=== PATIENT | female | born 1990 | race Caucasian/White ===

== ENCOUNTER 2016-09-05 12:21 | Inpatient (IN) | payer OTHER ==
[~2016-09-05] VITALS: Ht 172.7 cm; Wt 117.0 kg
[2016-09-05 13:48] VITALS: Ht 172.7 cm; Wt 117.0 kg
[2016-09-05 13:49] VITALS: BP 150/94; PULSE 67; RESP 18
[2016-09-05 14:14] LABS: ADD UMIC YES; UR ASCORBIC ACID NEGATIVE (NEGATIVE); UR BACTERIA MODERATE /HPF (NONE SEEN); UR BILIRUBIN (Dip) NEGATIVE (NEGATIVE); UR BLOOD (Dip) NEGATIVE (NEGATIVE); UR CLARITY SLIGHTLY CLOUDY (CLEAR); UR COLOR YELLOW (YELLOW); UR GLUCOSE (Dip) NEGATIVE (NEGATIVE); UR KETONES (Dip) NEGATIVE (NEGATIVE); UR LEUKOCYTE ESTERASE (Dip) TRACE Leu/ul (NEGATIVE); UR NITRITE (Dip) NEGATIVE (NEGATIVE); UR RBC 1 /HPF (0-5); UR SQUAMOUS EPITHELIAL CELL FEW /HPF (FEW); UR TOTAL PROTEIN (Dip) 2+ mg/dl (NEGATIVE); UR UROBILINOGEN (Dip) NEGATIVE (NEGATIVE)
--- NOTE | 2016-09-05 14:30 | RADRPT ---
PROCEDURE: OB ultrasound for biophysical profile CLINICAL INDICATION: Hypertension TECHNIQUE: Multiple sonographic images of the pelvis were obtained. Transabdominal views of the g ravid uterus are available for review. The images were reviewed on a PACS workstation. COMPARISON: None FINDINGS: breathing movement = 2/2 tone = 2/2 motion = 2/2 ROSEANNE = 2/2 ROSEANNE = 8.9 cm Single live intrauterine with cardiac activity of 146 bpm. position is cephal ic. The placenta is fundal. IMPRESSION: 1. Single live intrauterine gestation. 2. Biophysical profile = 8/8. 3. ROSEANNE = 8.9 cm. RPTAT: HH .Ailyn Christianson MD, MD Date Time Electronically viewed and signed by .Ailyn Christianson MD, on 09/05/2016 14:30 .G/
--- NOTE | 2016-09-05 14:32 | RADRPT ---
PROCEDURE: US OB. CLINICAL INDICATION: Size and dates TECHNIQUE: Multiple sonographic images of the pelvis were obtained. Transabdominal imaging only w as performed. The images were reviewed on a PACS workstation. COMPARISON: No prior studies are available for comparison. FINDINGS: There is a single live intrauterine gestation. Cardiac activity is present with 148 beats per minut e. position is cephalic. Measurements were made in order to determine age. The results are as follows: BPD = 8.33 cm HC = 29.20 cm AC = 30.99 cm FL = 6.77 cm. Estimated gestational age of approximately 33 weeks 6 days. The estimated date of delivery is 10/18/2016. The EFW = 2433 g, 8.8 %ile. The placenta is fundal. There is no evidence for an abruption or placenta previa. There are no adnexal masses. IMPRESSION: 1. Single live intrauterine gestation of approximately 33 weeks 6 days, by ultrasound criteria. 2. The estimated date of delivery is 10/18/2016. 3. The estimated weight is 2433 g, 8.8 %ile. RPTAT: HH .Ailyn Christianson MD, Date Time Electronically viewed and signed by .Ailyn Christianson MD, on 09/05/2016 14:32 .G/
[2016-09-05 14:51] LABS: ADD SCAN DIFF NO
[2016-09-05] MEDS ORDERED: MAGNESIUM SULFATE 4 GM/100 ML 100 ML IV ONE (15:00)
[2016-09-05] MEDS ORDERED: ONDANSETRON 4 MG INJ IV PRN (15:00)
--- NOTE | 2016-09-05 15:07 | HP ---
Date/Time of Note Date/Time of Note DATE: 09/05/16 TIME: 15:05 OB - History Hx of Present Free Text/Dictation pt sent from clinic for evaluatio of HTN and proteinuria : 1 Para: 0 Care: Good Care Ultrasounds: No ultrasounds, Normal mid trimester US Obstetrical Complications: Pre-eclampsia Past Family/Social History * Past Medical, Surgical, Family and Obstetric Histories reviewed from chart. OB Admission Exam Vital Signs Vital Signs Vital Signs Date Time Temp Pulse Resp B/P Pulse Ox O2 Delivery O2 Flow Rate FiO2 09/05/16 13:49 98.1 67 18 150/94 Room Air Physical Exam HEENT: WNL Heart: Rhythm Normal Abdomen: WNL Extremities: Normal Reflexes: Normal OB Assessment/Plan Other plan: iup 36 +\BP 160/100 +3 protein admit PIH labs, mgsou4 mangagment per pts OB LETTY OBREGON MD Sep 05, 2016 15:07
[2016-09-05] MEDS: LACTATED RINGER'S 1,000 ML IV SCH (15:14)
[2016-09-05 15:33] LABS: ALBUMIN 3.2 g/dl (3.3-4.9); ALBUMIN/GLOBULIN RATIO 0.91; CALCIUM 9.1 mg/dl (8.4-10.2); CREATININE 0.79 mg/dl (0.44-1.00); POTASSIUM 4.6 mmol/L (3.5-5.1); TOTAL PROTEIN 6.7 g/dl (6.1-8.1); URIC ACID 6.3 mg/dl (3.1-7.9)
[2016-09-05 15:39] LABS: BASOPHILS % 0.4 % (0.0-2.0); EOSINOPHILS % 0.1 % (0.0-7.0); HEMATOCRIT 38.6 % (37.0-47.0); HEMOGLOBIN 12.6 g/dl (12.0-16.0); LYMPHOCYTES # 2.5 10^3/ul (0.8-2.9); LYMPHOCYTES % 24.9 % (15.0-51.0); MEAN CORPUSCULAR HEMOGLOBIN 28.6 pg (29.0-33.0); MEAN CORPUSCULAR HGB CONC 32.6 g/dl (32.0-37.0); MEAN CORPUSCULAR VOLUME 87.7 fl (82.0-101.0); MEAN PLATELET VOLUME 12.8 fl (7.4-10.4); MONOCYTE # 0.5 10^3/ul (0.3-0.9); MONOCYTES % 4.8 % (0.0-11.0); NEUTROPHILS % 69.2 % (39.0-77.0); PLATELET COUNT 207 10^3/UL (140-415); RED CELL DISTRIBUTION WIDTH 15.6 % (11.5-14.5); WHITE BLOOD COUNT 10.1 10^3/ul (4.8-10.8)
[2016-09-05 15:47] LABS: INR 0.93; PARTIAL THROMBOPLASTIN TIME 28.6 Sec (25.0-35.0); PROTIME 12.5 Sec (12.2-14.2)
[2016-09-05] MEDS: MAGNESIUM SULFATE 20 GM/500 ML 500 ML IV SCH (15:53)
[2016-09-05] MEDS ORDERED: BETAMET NA PHOS/AC(6 MG/ML) 5ML INJ IM ONE (20:00)
[2016-09-05] MEDS: ACETAMINOPHEN 325 MG TAB PO PRN (20:02)
[2016-09-06] MEDS: LACTATED RINGER'S 1,000 ML IV SCH (00:34)
[2016-09-06] MEDS ORDERED: LABETALOL HCL 20MG INJ IV PRN ×2 (01:00→17:30)
[2016-09-06] MEDS: MAGNESIUM SULFATE 20 GM/500 ML 500 ML IV SCH ×3 (03:16→19:22)
--- NOTE | 2016-09-06 05:43 | PN ---
Date/Time of Note Date/Time of Note DATE: 09/06/16 TIME: 05:29 OB Subjective Subjective Subjective Late Entry Note: She was seen on 09/05/16 26 Year-old with SIUP at 36 4/7 weeks. She is c/o headache (3/10). She states good movement. She denies nausea, vomiting, shortness of breath, chest pain, visual changes, vaginal bleeding or LOF. OB Objective Objective Objective General: Patient appears well, alert and oriented, NAD, appropriate mood and affect ABD: gravid, soft, non-tender. Back: No CVA tenderness (B/L) LE: No clubbing, cyanosis, edema, thigh or calf tenderness bilaterally FHT: 135 bpm , moderate variability with acceleration, no deceleration-category I Contractions: None OB Assessment/Plan Other plan: 26 Year-old with SIUP at 36 4/7 weeks with preeclampsia. FHR: No sign of metabolic acidosis- Category I. Continuous EFM, toco. She is currently on mag sulfate. She was c/o headache which resolved with tylenol. BMZ x2 ordered. Observe her closely, delivery with s/sx of severe features. I have discussed pt over the phone with Dr. Saini who has agreed with plan. She recommend delivery with symptoms and sign of preeclampsia with severe features. STEFANIE ESTRELLA Sep 06, 2016 05:41
[2016-09-06] MEDS ORDERED: EPHEDrine SULFATE 50 MG/5 ML SYG ONE (07:00)
[2016-09-06] MEDS: ACETAMINOPHEN 325 MG TAB PO PRN (09:08)
[2016-09-06] MEDS ORDERED: DEXTROSE 5%-LR 1,000 ML IV SCH (09:30)
[2016-09-06] MEDS ORDERED: DINOPROSTONE 10 MG VAG SUPP VAG ONE (11:30)
[2016-09-06] MEDS ORDERED: CEFAZOLIN 2 GM/50 ML (PMX) 50 ML IVPB ONE (13:30)
[2016-09-06] MEDS ORDERED: ONDANSETRON 4 MG INJ IV STA (14:51)
[2016-09-06] MEDS ORDERED: CITRIC ACID/NA CITRATE 30 ML CUP PO ONE ×2 (15:00)
[2016-09-06] MEDS ORDERED: OXYTOCIN 10 UNIT INJ ONE (16:38)
[2016-09-06] MEDS ORDERED: FENTAnyl 50 MCG/ML VIAL ONE (16:38)
[2016-09-06] MEDS ORDERED: morphine SULFATE/PF (10 MG/10 ML) INJ ONE (16:38)
[2016-09-06] MEDS ORDERED: METOCLOPRAMIDE 10 MG INJ ONE (16:38)
[2016-09-06] MEDS ORDERED: PHENYLephrine (100 MCG/ML) 5ML SYG ONE (16:38)
[2016-09-06] MEDS ORDERED: DIPHENHYDRAMINE 50 MG INJ IV PRN ×2 (17:30)
[2016-09-06] MEDS ORDERED: FENTAnyl 50 MCG/ML VIAL IV PRN ×3 (17:30)
[2016-09-06] MEDS ORDERED: KETOROLAC 30 MG INJ IV PRN (17:30)
[2016-09-06] MEDS ORDERED: EPHEDrine SULFATE 50 MG/5 ML SYG IV PRN (17:30)
[2016-09-06] MEDS ORDERED: morphine 2 MG INJ IV PRN ×2 (17:30)
[2016-09-06] MEDS ORDERED: NALOXONE (0.4 MG/ML) INJ IV PRN (17:30)
[2016-09-06] MEDS ORDERED: MIDAZOLAM 1 MG/ML 2 ML INJ IV PRN (17:30)
[2016-09-06] MEDS ORDERED: hydrALAzine 20 MG INJ IV PRN (17:30)
[2016-09-06] MEDS ORDERED: HYDROmorphONE (0.2 MG/ML) 10ML SYG IV PRN ×3 (17:30)
[2016-09-06] MEDS ORDERED: TRIMETHOBENZAMIDE 100 MG/ML VIAL IM PRN (17:30)
[2016-09-06] MEDS ORDERED: OXYCODONE/ACETAMINOPHEN (5/325) TAB PO PRN ×4 (17:30→21:30)
[2016-09-06] MEDS ORDERED: MEPERIDINE 25 MG INJ IV PRN (17:30)
[2016-09-06] MEDS ORDERED: ONDANSETRON 4 MG INJ IV PRN ×2 (17:30)
--- NOTE | 2016-09-06 18:02 | OPR ---
Operative Report Planned Procedure Free Text/Dictation 26 years old complicated with moderate to severe PIH on magnesium sulfate delivery recommended by the perinatologist, Cervidil induction stopped due to patient request for no further trial of induction requesting delivery, complication of this surgery including but not limited to bowel and bladder injury wound infection and hematoma discussed with her understanding all these facts she would like to proceed with the operation Procedure date Sep 06, 2016 Procedure(s) Primary Performed by: ERIKA CORDERO MD Assisting provider: GIL TOURE MD Anesthesiologist: Ash Kowalski M.D. Pre-procedure diagnosis 36 weeks and 5 days moderate to severe PIH decline further trial of induction. Anesthesia Type: spinal Procedure Description Under satisfactory [spine] anesthesia, the patient was prepped and draped and placed in a supine position, tilted to the left. Pfannenstiel incision was made , carried through the subcutaneous tissue. Bleeders brought under control with electrocautery. Fascia incised to the length of the incision. Rectus muscles from the fascia, divided midline. Peritoneum exposed, entered through a transverse incision. Exploration of abdomen revealed gravid uterus. Normal- appearing tubes and ovaries bladder flap was developed. Transverse incision was made in the lower segment of the uterus. Amniotic sac ruptured. Clear [] amniotic fluid noted. Light baby girl was delivered from occiput transferred with nuchal cord tight around the baby's neck Nasal oropharyngeal suction was performed. The baby was handed to the team for immediate attention. placenta was delivered manually intact. Uterine cavity was cleaned with wet sponge and drainage established. Uterus closed in 2 layers using Monocryl #1 [] in continuous fashion. Peritoneal cavity irrigated with warm saline. Sponge, needle and instrument count reported to be correct. Abdominal peritoneum closed with [] 0 chromic catgut continuously. Rectus muscle approximated with [several interrupted 2-0 chromic catgut]. Fascia closed with [#1 PDS], subcutaneous tissue approximated with several interrupted 2-0 chromic catgut skin closed with sd. Estimated blood loss 600 []mL. Urine bag contained [200]mL of clear urine patient tolerated procedure well transferred to recovery room in good condition Post-Procedure Findings: Live Baby [], Apgars [] and [], weight [], position [], [] presentation []cord. Specimen removed: Yes Specimen description Placenta sent to the pathology Complications: None (None) Pt Condition post procedure: stable Physician Certification I, the undersigned physician, hereby certify that I have discussed the procedure described in this consent form with this patient (or the patient's legal accounting representative), including: * The risk and benefits of the procedure; * Any adverse reactions that may reasonably be expected to occur; * Any alternative efficacious methods of treatment which may be medically viable ; * The potential problems that may occur during recuperation; * Potential for blood transfusion and associated risks/benefits; and * Any research or economic interest I may have regarding this treatment. I further certify that the patient/legally responsible person was encouraged to ask question and that all questions were answered. ERIKA CORDERO MD Sep 06, 2016 18:01
[2016-09-06] MEDS ORDERED: OXYTOCIN 30 UNITS/LR 500 ML IV ONE (18:14)
[2016-09-06] MEDS: OXYTOCIN 30 UNITS/LR 500 ML IV SCH ×3 (19:00→21:47)
[2016-09-06] MEDS ORDERED: BETAMET NA PHOS/AC(6 MG/ML) 5ML INJ IM ONE (20:00)
--- NOTE | 2016-09-06 20:20 | DELSUM ---
Delivery Summary A-C Datetime Report Generated by CPN: 09/06/2016 20:20 DELIVERY PERSONNEL Refresh Technician: Angela, Imani MATERNAL INFORMATION Delivery Anesthesia: Spinal Placenta Cultured: No Maternal Complications: Other Other Maternal Complications: PRE ECLAMPSIA, 2+ PROTEIN, URIC ACID 6.3 LABOR SUMMARY EDC: 09/29/2016 00:00 No. Babies in Womb: 1 Attempted: No Labor Anesthesia: None LABOR INFORMATION Reason for Induction: Gest. HTN/PreEclam/Eclamp Cervical Ripening Agents: Cervidil Oxytocin: Induction Group B Beta Strep: Negative Antibiotics # of Doses: 1 Antibiotics Time of Last Dose: 09/06/2016 16:39 Steroids Given: Partial Course Reason Steroids Not Administered: Other Other Reason Not Administered: MD STATED SECOND DOSE NOT NECESSARY. PT IS 36.5 WKS MEMBRANES Membranes Rupture Method: Artificial Rupture of Membranes: 09/06/2016 17:07 Length of Rupture (hr): 0.00 Amniotic Fluid Color: Clear Amniotic Fluid Amount: Moderate Amniotic Fluid Odor: None STAGES OF LABOR Stage 3 hr: 0 Stage 3 min: 0 CSECTION DELIVERY Primary Indication: Repeat Elective CSection Urgency: Elective CSection Incidence: Primary Labor: No Labor Elective: Elective CSection Incision: Lower Uterine Transverse BABY A INFORMATION Delivery Date/Time: 09/06/2016 17:07 Method of Delivery: Born in Route : No : N/A Forceps: N/A Vacuum Extraction: N/A Shoulder Dystocia : N/A SHOULDER DYSTOCIA BABY A Infant Delivery Date/Time: 09/06/2016 17:07 PRESENTATION/POSITION BABY A Presentation: Cephalic Cephalic Presentation: Vertex Vertex Position: Left Occipital Anterior Breech Presentation: N/A PLACENTA INFORMATION BABY A Placenta Delivery Time : 09/06/2016 17:07 Placenta Method of Delivery: Manual Removal Placenta Status: Delivered SCORES BABY A Heart Rate 1 min: >100 bpm Resp Effort 1 min: Good Cry Reflex Irritability 1 min: Cough/Sneeze/Pulls Away Muscle Tone 1 min: Active Motion Color 1 min: Body Energy, Extremit Blue Resuscitation Effort 1 min: Tactile Stimulation SCORE 1 MIN: 9 Heart Rate 5 min: >100 bpm Resp Effort 5 min: Good Cry Reflex Irritability 5 min: Cough/Sneeze/Pulls Away Muscle Tone 5 min: Active Motion Color 5 min: Body Energy, Extremit Blue Resuscitation Effort 5 min: Tactile Stimulation SCORE 5 MIN: 9 INFANT INFORMATION BABY A Gestational Age at Delivery: 36.5 Gestational Status: Late - 34- 36.6 Weeks Infant Outcome : Liveborn Condition : Fair Sex: Female IDENTIFICATION/MEDS BABY A ID Band Number: [id number] ID Band Location: Right Leg; Left Arm Sensor Applied: Yes Sensor Number: [id number] Sensor Location : Cord Clamp Vitamin K Given : Not Given Erythromycin Given: Not Given WEIGHT/LENGTH BABY A Infant Birthweight (gm): 2115 Infant Weight (lb): 4 Infant Weight (oz): 11 Length (in): 18.00 Length (cm): 45.72 CORD INFORMATION BABY A No. Cord Vessels: 3 Nuchal Cord : Around Neck x1, Tight Cord Blood Taken: Yes Suction: Mouth; Nose ASSESSMENT BABY A Complications: None Physical Findings at Delivery: Within Normal Limits Infant Respirations: Appears Normal Elderly Companion/ALS Called : No Care By: MARLENY JUAN Transferred To: Remains with Mother
[2016-09-06] MEDS ORDERED: OXYTOCIN 30 UNITS/LR 500 ML IV SCH (20:30)
[2016-09-06 21:00] VITALS: BP 175/100; PULSE 72; RESP 20
[2016-09-06 21:15] VITALS: BP 170/89; PULSE 68; RESP 19
[2016-09-06 21:30] VITALS: BP 159/91; PULSE 77; RESP 19
[2016-09-06] MEDS ORDERED: CEFAZOLIN 1 GM/50 ML (PMX) 50 ML IVPB SCH (21:30)
[2016-09-06] MEDS ORDERED: LANOLIN 7 GM TUBE TOP PRN (21:30)
[2016-09-06] MEDS ORDERED: ACETAMINOPHEN/CODEINE #3 TAB PO PRN ×2 (21:30)
[2016-09-06] MEDS ORDERED: MISOPROSTOL 200 MCG TAB PR PRN (21:30)
[2016-09-06] MEDS ORDERED: CARBOPROST 250 MCG INJ IM PRN (21:30)
[2016-09-06] MEDS ORDERED: METHYLERGONOVINE 0.2 MG INJ IM PRN (21:30)
[2016-09-06] MEDS ORDERED: OXYTOCIN 30 UNITS/LR 500 ML IV PRN (21:30)
[2016-09-06 22:00] VITALS: BP 161/83; PULSE 68; RESP 21
[2016-09-06 23:00] VITALS: BP 153/89; PULSE 74; RESP 18
[2016-09-07] VITALS (24 sets, daily range): BP systolic 125–155; BP diastolic 79–102; PULSE 59–78; RESP 16–21
[2016-09-07] MEDS: OXYTOCIN 30 UNITS/LR 500 ML IV SCH ×4 (01:02→17:28)
[2016-09-07] MEDS: MAGNESIUM SULFATE 20 GM/500 ML 500 ML IV SCH ×3 (01:06→16:27)
[2016-09-07 04:38] LABS: SCRET 0.76 mg/dl (0.44-1.00)
[2016-09-07 08:32] LABS: ADD SCAN DIFF NO
[2016-09-07 08:37] LABS: BASOPHILS % 0.2 % (0.0-2.0); HEMATOCRIT 35.4 % (37.0-47.0); HEMOGLOBIN 11.7 g/dl (12.0-16.0); LYMPHOCYTES # 2.4 10^3/ul (0.8-2.9); LYMPHOCYTES % 18.6 % (15.0-51.0); MEAN CORPUSCULAR HEMOGLOBIN 28.7 pg (29.0-33.0); MEAN CORPUSCULAR HGB CONC 33.1 g/dl (32.0-37.0); MEAN PLATELET VOLUME 11.5 fl (7.4-10.4); MONOCYTE # 0.6 10^3/ul (0.3-0.9); MONOCYTES % 4.5 % (0.0-11.0); NEUTROPHIL # 9.9 10^3/ul (1.6-7.5); NEUTROPHILS % 76.2 % (39.0-77.0); PLATELET COUNT 192 10^3/UL (140-415); RED BLOOD COUNT 4.07 10^6/ul (4.20-5.40); RED CELL DISTRIBUTION WIDTH 15.9 % (11.5-14.5)
[2016-09-07] MEDS: IBUPROFEN 600 MG TAB PO SCH ×3 (12:00→20:00)
--- NOTE | 2016-09-07 12:58 | QN ---
Documentation Comment Post day 1 Afebrile vital signs are stable blood pressures running within normal will discontinue magnesium sulfate at 5:00 lochia moderate not complaining of headache blurry vision or any other neurological symptoms ambulation encouraged ERIKA CORDERO MD Sep 07, 2016 12:57
[2016-09-07] MEDS: LACTATED RINGER'S 1,000 ML IV SCH (13:59)
[2016-09-07] MEDS: LABETALOL 100 MG TAB PO SCH (16:50)
[2016-09-07] MEDS: SENNA/DOCUSATE NA (8.6MG/50MG) TAB PO SCH (22:16)
[2016-09-08] VITALS (15 sets, daily range): BP systolic 130–166; BP diastolic 74–102; PULSE 55–76; RESP 18–20
[2016-09-08] MEDS: IBUPROFEN 600 MG TAB PO SCH ×4 (00:09→17:23)
[2016-09-08] MEDS: LACTATED RINGER'S 1,000 ML IV SCH ×2 (01:06→16:10)
[2016-09-08] MEDS: LABETALOL 100 MG TAB PO SCH ×2 (01:08→09:05)
[2016-09-08] MEDS: MAGNESIUM SULFATE 20 GM/500 ML 500 ML IV SCH (07:50)
[2016-09-08] MEDS: SENNA/DOCUSATE NA (8.6MG/50MG) TAB PO SCH ×2 (09:05→21:49)
--- NOTE | 2016-09-08 11:42 | PN ---
Date/Time of Note Date/Time of Note DATE: 09/08/16 TIME: 11:39 OB Subjective Subjective Subjective Post day 2 Doing fairly Well Afebrile Ambulatory Chest Clear Breasts are soft , Nipples are intact Abdomen is soft Fundus is firm Moderate amount of lochia Incision is clean ,No evidence of infection No calf tenderness No ankle edema She was on magnesium sulfate due to elevated blood pressure .will discharge this medication and place her on labetalol 100 mg twice daily Laboratory Tests Test 09/07/16 18:00 09/08/16 00:29 09/08/16 08:22 Magnesium Level 5.1mg/dl 4.7mg/dl 4.2mg/dl Current Medications Medications (Trade) Dose Ordered Sig/Shereen Route PRN Reason Start Time Stop Time Status Last Admin Dose Admin Lactated Ringer's 1,000 ml @ 125 mls/hr Q8H IV 09/05/16 14:48 09/06/16 21:31 DC 09/06/16 00:34 Magnesium Sulfate 100 ml @ 200 mls/hr ONCE ONCE IV 09/05/16 15:00 09/05/16 15:29 DC 09/05/16 15:24 Magnesium Sulfate (Magnesium Sulfate 20 Gm/500 ml) 500 ml @ 50 mls/hr Q10H IV 09/05/16 14:48 09/07/16 16:37 DC 09/07/16 13:17 Ondansetron HCl (Zofran Inj) 4 mg Q6H PRN IV NAUSEA AND/OR VOMITING 09/05/16 15:00 09/07/16 16:39 DC Betamethasone Acet/Betameth SodPhos (Celestone Soluspan) 12 mg ONCE ONCE IM 09/05/16 20:00 09/05/16 20:01 DC 09/05/16 20:02 Acetaminophen (Tylenol Tab) 650 mg Q6H PRN PO PAIN AND OR ELEVATED TEMP 09/05/16 20:00 09/06/16 21:31 DC 09/06/16 09:08 Betamethasone Acet/Betameth SodPhos (Celestone Soluspan) 12 mg ONCE ONCE IM 09/06/16 20:00 09/06/16 20:01 DC Labetalol HCl 20 mg 20 mg NOTE PRN IV ELEVATED BLOOD PRESSURE 09/06/16 01:00 09/06/16 21:31 DC Dextrose/Lactated Ringer's (D5-Lr) 1,000 ml @ 125 mls/hr Q8H IV 09/06/16 09:30 09/06/16 21:31 DC 09/06/16 11:27 Dinoprostone 10 mg 10 mg ONCE ONCE VAG 09/06/16 11:30 09/06/16 11:31 DC 09/06/16 11:51 Cefazolin Sodium/ Dextrose (Ancef 2 Gm/50 ml (Pmx)) 50 ml @ 100 mls/hr ONCE ONCE IVPB 09/06/16 13:30 09/06/16 13:59 DC Ondansetron HCl (Zofran Inj) 4 mg ONCE STAT IV 09/06/16 14:51 09/06/16 14:54 DC 09/06/16 19:20 Citric Acid/ Sodium Citrate (Bicitra) 15 ml ONCE ONCE PO 09/06/16 15:00 09/06/16 15:01 DC 09/06/16 19:20 Citric Acid/ Sodium Citrate (Bicitra) 15 ml ONCE ONCE PO 09/06/16 15:00 09/06/16 15:01 DC 09/06/16 19:20 Fentanyl (Sublimaze) 100 mcg STK-MED ONCE .ROUTE 09/06/16 16:38 09/06/16 16:39 DC Phenylephrine HCl (Jame-Synephrine Inj Syg) 500 mcg STK-MED ONCE .ROUTE 09/06/16 16:38 09/06/16 16:39 DC Metoclopramide HCl (Reglan) 10 mg STK-MED ONCE .ROUTE 09/06/16 16:38 09/06/16 16:39 DC Oxytocin (Oxytocin) 10 units STK-MED ONCE .ROUTE 09/06/16 16:38 09/06/16 16:39 DC Morphine Sulfate (Duramorph) 10 mg STK-MED ONCE .ROUTE 09/06/16 16:38 09/06/16 16:39 DC Hydromorphone HCl (Dilaudid (Rec)) 0.2 mg PACU ORDER PRN IV MILD PAIN LEVEL 1-3 09/06/16 17:30 09/06/16 21:31 DC Hydromorphone HCl (Dilaudid (Rec)) 0.4 mg PACU ORDER PRN IV MODERATE PAIN LEVEL 4-6 09/06/16 17:30 09/06/16 21:31 DC Hydromorphone HCl (Dilaudid (Rec)) 0.6 mg PACU ORDER PRN IV SEVERE PAIN LEVEL 7-10 09/06/16 17:30 09/06/16 21:31 DC Fentanyl (Sublimaze) 25 mcg PACU ORDER PRN IV MILD PAIN LEVEL 1-3 09/06/16 17:30 09/06/16 21:31 DC Fentanyl (Sublimaze) 50 mcg PACU ODER PRN IV MODERATE PAIN LEVEL 4-6 09/06/16 17:30 09/06/16 21:31 DC Fentanyl (Sublimaze) 75 mcg PACU ORDER PRN IV SEVERE PAIN LEVEL 7-10 09/06/16 17:30 09/06/16 21:31 DC Oxycodone/ Acetaminophen (Percocet (5/ 325)) 1 tab PACU ORDER PRN PO PAIN LEVEL 1-5 09/06/16 17:30 09/06/16 21:31 DC Oxycodone/ Acetaminophen (Percocet (5/ 325)) 2 tab PACU ORDER PRN PO PAIN LEVEL 6-10 09/06/16 17:30 09/06/16 21:31 DC Ondansetron HCl (Zofran Inj) 4 mg PACU ORDER PRN IV NAUSEA AND/OR VOMITING 09/06/16 17:30 09/06/16 21:32 DC Trimethobenzamide HCl (Tigan) 200 mg PACU ORDER PRN IM NAUSEA AND/OR VOMITING 09/06/16 17:30 09/06/16 21:32 DC Labetalol HCl (Labetalol) 5 mg PACU ORDER PRN IV HIGH BLOOD PRESSURE 09/06/16 17:30 09/06/16 21:32 DC Hydralazine HCl (Apresoline) 5 mg PACU ORDER PRN IV HIGH BLOOD PRESSURE 09/06/16 17:30 09/06/16 21:32 DC Ephedrine Sulfate 5 mg PACU ORDER PRN IV MAP LESS THAN 60 09/06/16 17:30 09/06/16 21:32 DC Meperidine HCl (Demerol) 25 mg PACU ORDER PRN IV POST-OP RIGORS 09/06/16 17:30 09/06/16 21:32 DC Diphenhydramine HCl (Benadryl) 25 mg PACU ORDER PRN IV PRURITUS 09/06/16 17:30 09/06/16 21:32 DC Midazolam HCl (Versed) 0.5 mg PACU ORDER PRN IV ANXIETY 09/06/16 17:30 09/06/16 21:32 DC Naloxone HCl (Narcan) 0.1 mg Q2M PRN IV FOR RESP RATE 8 OR LESS 09/06/16 17:30 09/07/16 16:39 DC Ketorolac Tromethamine (Toradol) 30 mg Q6H PRN IV PAIN 09/06/16 17:30 09/07/16 16:39 DC Morphine Sulfate (morphine) 2 mg Q3H PRN IV PAIN LEVEL 1-5 09/06/16 17:30 09/07/16 16:39 DC Morphine Sulfate (morphine) 4 mg Q3H PRN IV PAIN LEVEL 6-10 09/06/16 17:30 09/07/16 16:39 DC Diphenhydramine HCl (Benadryl) 25 mg Q6H PRN IV ITCHING 09/06/16 17:30 09/07/16 16:39 DC Ondansetron HCl (Zofran Inj) 4 mg Q6H PRN IV NAUSEA AND/OR VOMITING 09/06/16 17:30 09/06/16 21:32 DC Miscellaneous Information Duramorph: 0.2 mg Spi... GIVEN XX 09/06/16 17:30 09/06/16 21:32 DC Oxytocin/Lactated Ringer's 500 ml @ ud STK-MED ONCE IV 09/06/16 18:14 09/06/16 18:15 DC Oxytocin/Lactated Ringer's 500 ml @ 125 mls/hr ONCE IV 09/06/16 20:30 Acetaminophen/ Codeine Phosphate (Tylenol No.3) 1 tab Q4H PRN PO PAIN LEVEL 4-6 09/06/16 21:30 Acetaminophen/ Codeine Phosphate (Tylenol No.3) 2 tab Q4H PRN PO PAIN LEVEL 7-10 09/06/16 21:30 Oxycodone/ Acetaminophen (Percocet (5/ 325)) 1 tab Q4H PRN PO PAIN LEVEL 4-6 09/06/16 21:30 Oxycodone/ Acetaminophen (Percocet (5/ 325)) 2 tab Q4H PRN PO PAIN LEVEL 7-10 09/06/16 21:30 Ibuprofen (Motrin) 600 mg Q6 PO 09/07/16 12:00 09/08/16 11:32 Simethicone (Mylicon) 160 mg Q8H PRN PO DISTENSION/GAS/BLOATING 09/06/16 21:30 Senna/Docusate Sodium (Senokot-S) 1 tab BID PO 09/07/16 21:00 09/08/16 09:05 Lanolin (Ala-S-Pgdmot) 1 applic BEDSIDE MEDICATION PRN TOP BEDSIDE FOR TANVIR TO NIPPLES 09/06/16 21:30 Diphtheria/ Tetanus/Acell Pertussis 0.5 ml 0.5 ml ONCE ONCE IM* 09/09/16 09:00 09/09/16 09:01 Oxytocin/Lactated Ringer's 500 ml @ 0 mls/hr ONCE PRN IV For Hemorrhage Management 09/06/16 21:30 Methylergonovine Maleate (Methergine) 0.2 mg ONCE PRN IM VAGINAL BLEEDING 09/06/16 21:30 Carboprost Tromethamine (Hemabate) 250 mcg ONCE PRN IM VAGINAL BLEEDING 09/06/16 21:30 Misoprostol 1000 mcg 1,000 mcg ONCE PRN OK VAGINAL BLEEDING 09/06/16 21:30 Cefazolin Sodium 50 ml @ 100 mls/hr ONCE IVPB 09/06/16 21:30 09/06/16 21:59 DC 09/07/16 01:06 Oxytocin/Lactated Ringer's 500 ml @ 125 mls/hr Q4H IV 09/06/16 21:28 09/07/16 19:46 DC 09/07/16 06:28 Lactated Ringer's (Lr) 1,000 ml @ 75 mls/hr [id number] IV 09/07/16 13:30 09/08/16 01:06 Labetalol HCl 100 mg 100 mg BID PO 09/07/16 16:45 09/08/16 09:05 Magnesium Sulfate (Magnesium Sulfate 20 Gm/500 ml) 500 ml @ 25 mls/hr Q20H IV 09/07/16 16:27 09/08/16 09:00 DC 09/08/16 07:50 Ephedrine Sulfate 50 mg STK-MED ONCE .ROUTE 09/06/16 07:00 09/07/16 21:37 DC is also is doing well GIL TOURE MD Sep 08, 2016 11:42
[2016-09-08] MEDS ORDERED: LABETALOL 100 MG TAB PO STA (12:38)
[2016-09-08] MEDS: LABETALOL 200 MG TAB PO SCH (21:49)
[2016-09-09] MEDS: IBUPROFEN 600 MG TAB PO SCH ×5 (00:31→23:49)
[2016-09-09 04:15] VITALS: BP 175/91; PULSE 61; RESP 20
[2016-09-09] MEDS: LABETALOL 200 MG TAB PO SCH ×2 (05:13→20:35)
[2016-09-09] MEDS: LACTATED RINGER'S 1,000 ML IV SCH (05:13)
[2016-09-09 05:15] VITALS: BP 164/95; PULSE 59; RESP 20
[2016-09-09 08:00] VITALS: BP 146/88; PULSE 58; RESP 18
[2016-09-09] MEDS: SENNA/DOCUSATE NA (8.6MG/50MG) TAB PO SCH ×2 (09:00→20:34)
[2016-09-09] MEDS: NIFEdipine (XL) 30 MG TAB PO SCH (09:00)
[2016-09-09] MEDS ORDERED: DIPHTH/TET/ACEL PERTUSS (ADULT) 0.5 ML VIAL IM* ONE (09:00)
[2016-09-09 12:00] VITALS: BP 186/106; PULSE 58; RESP 20
[2016-09-09 16:02] VITALS: BP 141/76; PULSE 76; RESP 18
--- NOTE | 2016-09-09 16:23 | PN ---
Date/Time of Note Date/Time of Note DATE: 09/09/16 TIME: 16:20 OB Subjective Subjective Subjective She is afebrile her blood pressures are fluctuating between 180s over 100-140 75 she she is on labetalol 200 mg twice daily we added Procardia XL 30 we will continue observing her sponsor to Procardia otherwise generally she feels good had normal bowel movement incision dry and clean lochia moderate her extremities are normal. ERIKA CORDERO MD Sep 09, 2016 16:23
[2016-09-09 19:45] VITALS: BP 158/84; PULSE 75; RESP 19
[2016-09-09] MEDS ORDERED: LABETALOL 100 MG TAB PO ONE (22:00)
[2016-09-10] VITALS (7 sets, daily range): BP systolic 142–162; BP diastolic 75–94; PULSE 66–83; RESP 18–20
[2016-09-10] MEDS: IBUPROFEN 600 MG TAB PO SCH ×4 (05:53→23:44)
[2016-09-10] MEDS: NIFEdipine (XL) 30 MG TAB PO SCH (08:20)
[2016-09-10] MEDS: LABETALOL 200 MG TAB PO SCH ×2 (09:12→20:31)
[2016-09-10] MEDS: SENNA/DOCUSATE NA (8.6MG/50MG) TAB PO SCH ×2 (09:12→20:31)
--- NOTE | 2016-09-10 11:16 | PN ---
Date/Time of Note Date/Time of Note DATE: 09/10/16 TIME: 11:13 OB Subjective Subjective Subjective She is afebrile her blood pressure labetalol 200 mg twice daily and Procardia XL 30 million once daily still running on 150s 160s over 90s and 100 I recommended to give 1 extra dose of Procardia XL 30 mg today to see 60 mg of Procardia XL will control the blood pressure. ERIKA CORDERO MD Sep 10, 2016 11:16
[2016-09-10] MEDS ORDERED: NIFEdipine (XL) 30 MG TAB PO ONE (11:30)
[2016-09-11 04:15] VITALS: BP 145/94; PULSE 66; RESP 19
[2016-09-11] MEDS: IBUPROFEN 600 MG TAB PO SCH ×2 (05:43→12:06)
[2016-09-11 08:00] VITALS: BP 145/88; PULSE 65; RESP 19
[2016-09-11] MEDS: NIFEdipine (XL) 30 MG TAB PO SCH (08:00)
[2016-09-11] MEDS: SENNA/DOCUSATE NA (8.6MG/50MG) TAB PO SCH (09:07)
[2016-09-11] MEDS: LABETALOL 200 MG TAB PO SCH (09:09)
[2016-09-11 12:00] VITALS: BP 149/87; PULSE 68; RESP 20
--- NOTE | 2016-09-11 13:42 | DS ---
Date/Time of Note Date/Time of Note DATE: 09/11/16 TIME: 13:29 Discharge Summary Admission/Discharge Info Admit Date/Time Sep 05, 2016 at 14:59 Discharge Date/Time September 11, 2069 at 1320 Discharge Diagnosis Day 6 post primary due to essential hypertension superimposed by -induced hypertension, since the delivery she has been on several blood pressure medication including labetalol 100 mg twice daily , Procardia XL 30 mg 1 daily since patient blood pressure continued to be elevated Procardia XL 30 mg discontinue and replace with Procardia XL 60, while she is on this medications her blood pressure is still on 140 over 90s I am discharging her home on labetalol 200 mg twice daily and Procardia XL 30 I also recommended she check her blood pressure before taking the medication and make an appointment with the clinic within the next 48 hours to check on her blood pressure as well as post check Patient Condition: Good Consults I advised she should schedule an appointment with [facility] keyliner for her blood pressure follow-up Procedures Primary due to PIH possibly superimposed on essential hypertension Hx of Present Illness complicated with -induced hypertension Hospital Course Patient had satisfactory post recovery advised follow-up at the clinic for hypertension evaluation Follow-up Plan Advised to make appointment to be seen at the clinic within the next 2 days follow-up post with hypertension Primary Care Provider [facility] Time spent on discharge: < 30 minutes ERIKA CORDERO MD Sep 11, 2016 13:40
== END 2016-09-11 15:10 | disposition home or self-care (01) | DRG 766 ==
LOC: OBT 12:21 → L-D 12:22 → OBT 14:56 → L-D 14:59 → PP1 09-06 20:51
PROVIDERS: ADMIT Obstetrics & Gynecology; ATTEND Obstetrics & Gynecology
PROC: 10D00Z1 Extraction of Products of Conception, Low, Open Approach (ICD-10-PCS; principal; 2016-09-06 17:00)
DX: O13.4 Gestational [pregnancy-induced] hypertension without significant proteinuria, complicating childbirth (principal); O60.14X0 Preterm labor third trimester with preterm delivery third trimester, not applicable or unspecified; Z3A.36 36 weeks gestation of pregnancy; Z37.0 Single live birth
CPT/HCPCS: 36415; 76815; 76818; 80053; 81001; 82575; 83735; 84156; 84560; 85025; 85384; 85610; 85730; 86592; 87340; 88307; 90715; 94760; 99464; G0463; J0690; J0702; J2274; J2370; J2405; J2590; J2765; J3010; J3475; J7120; J7121

== ENCOUNTER 2018-10-09 12:02 | Outpatient (CLI) | payer OTHER ==
[~2018-10-09] VITALS: Ht 160 cm; Wt 112.8 kg
[~2018-10-09 12:02] MED LIST: PREN-93 PO
[2018-10-09 12:15] VITALS: Ht 160 cm; Wt 112.8 kg
== END 2018-10-09 13:52 | disposition home or self-care (01) ==
LOC: L-D 12:02 → OBT 12:02
PROVIDERS: ATTEND Specialist
DX: O36.8130 Decreased fetal movements, third trimester, not applicable or unspecified (principal); Z3A.38 38 weeks gestation of pregnancy
CPT/HCPCS: 76818; Z7500; G0463

== ENCOUNTER 2018-10-17 10:31 | Inpatient (IN) | payer OTHER ==
[~2018-10-17] VITALS: Ht 172.7 cm; Wt 113.7 kg
[2018-10-17] MEDS ORDERED: METHYLERGONOVINE 0.2 MG INJ IM PRN (11:30)
[2018-10-17] MEDS ORDERED: MISOPROSTOL 200 MCG TAB PR PRN ×2 (11:30→15:00)
[2018-10-17] MEDS ORDERED: OXYTOCIN 30 UNITS/LR 500 ML IV PRN (11:30)
[2018-10-17] MEDS ORDERED: CARBOPROST 250 MCG INJ IM PRN (11:30)
[2018-10-17] MEDS ORDERED: OXYTOCIN 30 UNITS/LR 500 ML IV SCH (11:30)
[2018-10-17] MEDS ORDERED: CEFAZOLIN 2 GM/50 ML (PMX) 50 ML IVPB SCH (11:30)
[2018-10-17 11:33] VITALS: Ht 172.7 cm; Wt 113.7 kg
[2018-10-17] MEDS ORDERED: CEFAZOLIN 2 GM/50 ML (PMX) 50 ML IVPB ONE (12:03)
[2018-10-17] MEDS: LACTATED RINGER'S 1,000 ML IV SCH ×2 (12:17→19:29)
[2018-10-17] MEDS ORDERED: LACTATED RINGER'S 1,000 ML IV SCH (14:38)
[2018-10-17] MEDS ORDERED: morphine SULFATE/PF (10 MG/10 ML) INJ ONE (14:59)
[2018-10-17] MEDS ORDERED: FENTAnyl 50 MCG/ML VIAL ONE (14:59)
[2018-10-17] MEDS ORDERED: LANOLIN HPA 1 PKT TOP PRN (15:00)
[2018-10-17] MEDS ORDERED: OXYCODONE/ACETAMINOPHEN (5/325) TAB PO PRN ×2 (15:00)
[2018-10-17] MEDS ORDERED: NA PHOSPHATE/BIPHOS 133 ML ENEMA PR PRN (15:00)
[2018-10-17] MEDS ORDERED: ONDANSETRON 4 MG INJ ONE (15:11)
[2018-10-17] MEDS ORDERED: OXYTOCIN 10 UNIT INJ ONE (15:12)
[2018-10-17] MEDS ORDERED: ONDANSETRON 4 MG INJ IV PRN (15:30)
[2018-10-17] MEDS ORDERED: DIPHENHYDRAMINE 50 MG INJ IV PRN (15:30)
[2018-10-17] MEDS ORDERED: NALOXONE (0.4 MG/ML) INJ IV PRN (15:30)
[2018-10-17] MEDS ORDERED: TRIMETHOBENZAMIDE 100 MG/ML VIAL IM PRN (15:30)
[2018-10-17] MEDS ORDERED: NALBUPHINE HCL (10 MG/1 ML) INJ IV PRN (15:30)
[2018-10-17] MEDS ORDERED: morphine 2 MG INJ IV PRN ×2 (15:30)
[2018-10-17] MEDS: IBUPROFEN 600 MG TAB PO SCH (18:00)
[2018-10-17] MEDS ORDERED: KETOROLAC 30 MG INJ IV PRN (18:30)
[2018-10-17 19:00] VITALS: BP 122/74; PULSE 84; RESP 18
[2018-10-17 19:30] VITALS: BP 106/59; PULSE 63; RESP 19
[2018-10-17] MEDS: SENNA/DOCUSATE NA (8.6MG/50MG) TAB PO SCH (21:44)
[2018-10-18] VITALS: BP 102/59; PULSE 62; RESP 19
[2018-10-18 04:00] VITALS: BP 106/51; PULSE 71; RESP 18
[2018-10-18] MEDS: LACTATED RINGER'S 1,000 ML IV SCH ×3 (04:47→19:29)
[2018-10-18] MEDS: IBUPROFEN 600 MG TAB PO SCH ×5 (06:00→23:40)
[2018-10-18 08:00] VITALS: BP 107/66; PULSE 66; RESP 16
[2018-10-18] MEDS: SENNA/DOCUSATE NA (8.6MG/50MG) TAB PO SCH ×2 (11:10→21:47)
[2018-10-18 12:00] VITALS: BP 113/75; PULSE 72; RESP 18
[2018-10-18 17:22] VITALS: BP 102/70; PULSE 68; RESP 18
[2018-10-18 20:15] VITALS: BP 107/66; PULSE 66; RESP 18
[2018-10-19] MEDS: LACTATED RINGER'S 1,000 ML IV SCH (03:29)
[2018-10-19 04:40] VITALS: BP 106/57; PULSE 65; RESP 16
[2018-10-19] MEDS: IBUPROFEN 600 MG TAB PO SCH ×2 (06:20→12:05)
[2018-10-19 08:30] VITALS: BP 119/68; PULSE 66; RESP 16
[2018-10-19] MEDS: SENNA/DOCUSATE NA (8.6MG/50MG) TAB PO SCH (09:59)
[2018-10-19 18:02] VITALS: BP 116/63; PULSE 67; RESP 18
[2018-10-20] MEDS ORDERED: DIPHTH/TET/ACEL PERTUSS (ADULT) 0.5 ML VIAL IM* ONE (09:00)
[2018-10-20] MEDS ORDERED: MEASLES,MUMPS,RUBELLA VACCINE INJ SC* ONE (09:00)
== END 2018-10-19 18:27 | disposition home or self-care (01) | DRG 785 ==
LOC: L-D 10:31 → PP1 18:50
PROVIDERS: ADMIT Specialist; ATTEND Specialist
PROC: 0UB50ZZ Excision of Right Fallopian Tube, Open Approach (ICD-10-PCS; 2018-10-17)
PROC: 0UB60ZZ Excision of Left Fallopian Tube, Open Approach (ICD-10-PCS; 2018-10-17)
PROC: 10D00Z1 Extraction of Products of Conception, Low, Open Approach (ICD-10-PCS; principal; 2018-10-17 12:30)
DX: O34.219 Maternal care for unspecified type scar from previous cesarean delivery (principal); Z3A.38 38 weeks gestation of pregnancy; Z37.0 Single live birth; Z30.2 Encounter for sterilization; Z90.79 Acquired absence of other genital organ(s)
CPT/HCPCS: 85025; 85610; 85730; 86592; 86850; 86900; 86901; 87340; 88302; 99464; J0690; J1885; J2274; J2405; J2590; J3010; J7120